=== PATIENT | female | born 1935 | race Caucasian/White ===

== ENCOUNTER 2018-07-04 11:00 | Emergency (ER) | payer OTHER ==
[~2018-07-04] VITALS: Ht 162.6 cm; Wt 70.4 kg
[2018-07-04 11:12] VITALS: Ht 162.6 cm; Wt 70.4 kg
--- NOTE | 2018-07-04 12:07 | EMERGENCY ROOM VISIT NOTE ---
History First contact with patient: 11:34 Chief Complaint: GI ASSESSMENT Stated Complaint: DISTENDED STOMACH History of Present Illness The patient is a 83 year old female who presents to the Emergency Room brought in by daughter due to concern for decreased appetite recent fatigue and somnolence. Daughter states patient has lived in [place] by herself for many years. They noticed in the last several months the patient was having increased forgetfulness and neighbors called her to also state that she did not seem to be eating normally and they were concerned about weight loss. Daughter states they brought her up to their house this summer in the hopes of trying to encourage her to eat better. States she will sleep up to 15 hours a day, has very little appetite and poor intake. Daughter also states that her abdomen appears much more distended than is usual for her. Does not know of any history of GI problems. Is unaware if she is ever had a screening colonoscopy. States patient currently does not take any medications. Patient at bedside has no complaints. Denies any pain, states her appetite is typically well except for the last 3 days. Does admit to increased abdominal distention and bloating. States her bowel movements have been normal, denies black or bloody stools. States has not noticed any change in her urine including a change in odor. Denies fevers or chills. Denies chest pain or trouble breathing. States she gets mildly dizzy when she when she first stands up and feels slightly off balance, however if she stands still for a minute this seems to improve. Denies any weakness or pain with ambulation, although does admit she is easily winded with ambulation. Daughter also notes she had recently had a urinary tract infection which was treated with a week of antibiotics. Review of Systems See HPI for pertinent positives & negatives. A total of 10 systems reviewed and were otherwise negative. Social History Smoking Status: Former Smoker Alcohol Use: none Drug Use: none Marital Status: single Housing Status: lives with family Occupation Status: retired Current/Historical Medications No Active Prescriptions or Reported Meds Physical Exam Vital Signs Date Time Temp Pulse Resp B/P (MAP) Pulse Ox O2 Delivery O2 Flow Rate FiO2 07/04/18 15:15 36.7 72 16 131/78 98 07/04/18 13:16 73 18 126/73 97 Room Air 07/04/18 11:12 36.6 89 20 114/68 92 Room Air Physical Exam GENERAL: alert, well appearing, well nourished, no distress, non-toxic EYE EXAM: normal conjunctiva, PERRL and EOM's grossly intact OROPHARYNX: no exudate, no erythema, lips, buccal mucosa, and tongue normal and mucous membranes are moist NECK: supple, no nuchal rigidity, no adenopathy, non-tender LUNGS: Clear to auscultation. Normal chest wall mechanics, no w/r/r HEART: no murmurs, S1 normal and S2 normal ABDOMEN: abdomen soft, non-tender, normo-active bowel sounds, no masses, no rebound or guarding. Distention noted, no diffuse tympany to percussion, no pulsatile mass. BACK: Back is symmetrical on inspection and there is no deformity, no midline tenderness, no CVA tenderness. SKIN: no rashes and no bruising UPPER EXTREMITIES: upper extremities are grossly normal. Full range of motion, normal pulses. LOWER EXTREMITIES: No pitting edema. Full range of motion, normal pulses. NEURO EXAM: Normal sensorium, cranial nerves II-XII [grossly] intact, normal speech, no [gross] weakness of arms, no [gross] weakness of legs. Gross sensation intact. Medical Decision & Procedures ER Provider Diagnostic Interpretation: CHEST ONE VIEW PORTABLE CLINICAL HISTORY: Weight loss. COMPARISON STUDY: No previous studies for comparison. FINDINGS: Marked elevation of the right hemidiaphragm is noted. There is no evidence for pulmonary edema or pneumonia. Right lower lung opacity favors atelectasis. Mild to moderate cardiomegaly is noted. 2.5 cm right upper quadrant calcific density favors a gallstone. IMPRESSION: 1. No acute cardiopulmonary findings. 2. Marked elevation of the right hemidiaphragm. 3. Mild to moderate cardiomegaly. 4. Cholelithiasis. Electronically signed by: Feng Tucker M.D. 07/04/2018 12:[address] SCAN OF THE ABDOMEN AND PELVIS WITH IV CONTRAST CLINICAL HISTORY: Abdominal distention. Weight loss. Diminished appetite. COMPARISON STUDY: No priors. TECHNIQUE: Following the IV administration of 90 cc of Optiray 320, CT scan of the abdomen and pelvis is performed from the lung bases to the proximal femora. Images are reviewed in the axial, sagittal, and coronal planes. IV contrast was administered without complication. A dose lowering technique was utilized adhering to the principles of ALARA. CT DOSE: 862.70 mGycm FINDINGS: Lung bases: The heart is normal in size and without pericardial effusion. There is a trace right pleural effusion, with elevation of the right hemidiaphragm and right basilar atelectasis. Linear atelectasis is seen at the left lung base. There is no airspace consolidation seen typical for pneumonia. There is a tiny hiatal hernia. Liver: The contrast-enhanced liver is normal in size, contour, and attenuation. There is no intrahepatic biliary ductal dilatation. The hepatic veins and portal veins are patent. Scattered 2 to 3 mm hepatic hypodensities likely represent tiny cysts but are too small for definitive characterization. Gallbladder: There are large calcified gallstones. Spleen: Normal in size and attenuation. Pancreas: Mildly atrophic and grossly unremarkable. Adrenal glands: Unremarkable. Kidneys: The contrast enhanced kidneys are atrophic and without hydronephrosis. Cortical scarring is noted on the left. The kidneys enhance symmetrically. Abdominal vasculature: The abdominal aorta is normal in course and caliber noting moderate atherosclerotic calcification. Bowel: There is an approximately 6 x 12 x 6.5 cm heterogeneously enhancing mass lesion identified in the pelvis centered around the sigmoid colon on image #379. There is no upstream colonic obstruction. This mass lesion closely approximates the dome of the bladder which appears mildly thickened. Bladder invasion is not excluded. There is advanced colonic diverticulosis without CT evidence of acute diverticulitis. The appendix is not clearly visualized. Peritoneum: There is a moderate volume of abdominopelvic ascites. No intraperitoneal free air is seen. There is extensive omental KK identified, greatest anteriorly abdomen the ventral pelvis. The appearance is consistent with carcinomatosis. Mild peritoneal thickening and nodularity is noted. Lymphadenopathy: There are prominent subcentimeter mesenteric lymph nodes. There is no upper abdominal, retroperitoneal, pelvic sidewall, or inguinal lymphadenopathy. Pelvic viscera: The bladder is decompressed. The uterus is surgically absent. Skeletal structures: The skeletal structures are osteopenic. There is a mild superior endplate compression deformity of L1, and a mild to moderate compression deformities noted in L2. Moderate lumbosacral spondylosis is observed. No lytic or blastic lesions are seen. IMPRESSION: 1. There is an approximately 6 x 12 x 6.5 cm heterogeneous mass lesion in the pelvis centered around the sigmoid colon. This should be considered colon cancer until proven otherwise. 2. There is no evidence of colonic obstruction. The upstream colon and small bowel loops are normal in caliber. 3. There is evidence of extensive peritoneal carcinomatosis with a moderate volume of abdominopelvic ascites and omental taking. 4. The mass lesion closely approximates the dome of the bladder which appears mildly thickened. Bladder invasion is not excluded. 5. Advanced colonic diverticulosis without CT evidence of acute diverticulitis. 6. Cholelithiasis. 7. Trace right pleural effusion. 8. Additional findings as above. Electronically signed by: Wild Madrid M.D. 07/04/2018 1:15 PM Dictated Date/Time: 07/04/2018 1:02 PM Laboratory Results 07/04/18 11:50 Red Blood Count 3.74, Mean Corpuscular Volume 91.7, Mean Corpuscular Hemoglobin 28.9, Mean Corpuscular Hemoglobin Concent 31.5, Mean Platelet Volume 9.3, Neutrophils (%) (Auto) 71.5, Lymphocytes (%) (Auto) 13.4, Monocytes (%) (Auto) 12.8, Eosinophils (%) (Auto) 1.6, Basophils (%) (Auto) 0.3, Neutrophils # (Auto ) 4.79, Lymphocytes # (Auto) 0.90, Monocytes # (Auto) 0.86, Eosinophils # (Auto ) 0.11, Basophils # (Auto) 0.02 07/04/18 11:50 Test 07/04/18 11:50 07/04/18 12:07 07/04/18 14:00 White Blood Count 6.71 K/uL (4.8-10.8) Red Blood Count 3.74 M/uL (4.2-5.4) Hemoglobin 10.8 g/dL (12.0-16.0) Hematocrit 34.3 % (37-47) Mean Corpuscular Volume 91.7 fL (80-100) Mean Corpuscular Hemoglobin 28.9 pg (25-34) Mean Corpuscular Hemoglobin Concent 31.5 g/dl (32-36) Platelet Count 403 K/uL (130-400) Mean Platelet Volume 9.3 fL (7.4-10.4) Neutrophils (%) (Auto) 71.5 % Lymphocytes (%) (Auto) 13.4 % Monocytes (%) (Auto) 12.8 % Eosinophils (%) (Auto) 1.6 % Basophils (%) (Auto) 0.3 % Neutrophils # (Auto) 4.79 K/uL (1.4-6.5) Lymphocytes # (Auto) 0.90 K/uL (1.2-3.4) Monocytes # (Auto) 0.86 K/uL (0.11-0.59) Eosinophils # (Auto) 0.11 K/uL (0-0.5) Basophils # (Auto) 0.02 K/uL (0-0.2) RDW Standard Deviation 51.7 fL (36.4-46.3) RDW Coefficient of Variation 15.5 % (11.5-14.5) Immature Granulocyte % (Auto) 0.4 % Immature Granulocyte # (Auto) 0.03 K/uL (0.00-0.02) Prothrombin Time 10.8 SECONDS (9.0-12.0) Prothromb Time International Ratio 1.0 (0.9-1.1) Anion Gap 8.0 mmol/L (3-11) Est Creatinine Clear Calc Drug Dose 37.7 ml/min Estimated GFR () 56.1 Estimated GFR (Non- 48.4 BUN/Creatinine Ratio 20.1 (10-20) Calcium Level 9.0 mg/dl (8.5-10.1) Magnesium Level 1.8 mg/dl (1.8-2.4) Total Bilirubin 0.5 mg/dl (0.2-1) Aspartate Amino Transf (AST/SGOT) 11 U/L (15-37) Alanine Aminotransferase (ALT/SGPT) 9 U/L (12-78) Alkaline Phosphatase 40 U/L (45-117) Troponin I < 0.015 ng/ml (0-0.045) Pro-B-Type Natriuretic Peptide 1416 pg/ml (0-1800) Total Protein 7.1 gm/dl (6.4-8.2) Albumin 2.5 gm/dl (3.4-5.0) Globulin 4.6 gm/dl (2.5-4.0) Albumin/Globulin Ratio 0.5 (0.9-2) Lipase 82 U/L (73-393) Thyroid Stimulating Hormone (TSH) 2.010 uIu/ml (0.300-4.500) Bedside Lactic Acid Venous 1.24 mmol/L (0.90-1.70) Urine Color YELLOW Urine Appearance CLEAR (CLEAR) Urine pH 6.5 (4.5-7.5) Urine Specific [place] > 1.045 (1.000-1.030) Urine Protein NEG (NEG) Urine Glucose (UA) NEG (NEG) Urine Ketones NEG (NEG) Urine Occult Blood NEG (NEG) Urine Nitrite NEG (NEG) Urine Bilirubin NEG (NEG) Urine Urobilinogen NEG (NEG) Urine Leukocyte Esterase TRACE (NEG) Urine WBC (Auto) 1-5 /hpf (0-5) Urine RBC (Auto) 0-4 /hpf (0-4) Urine Hyaline Casts (Auto) 1-5 /lpf (0-5) Urine Epithelial Cells (Auto) >30 /lpf (0-5) Urine Bacteria (Auto) NEG (NEG) Urine Renal Epithelial Cells /lpf (0-5) Medications Administered Medications (Trade) Dose Ordered Sig/Marycarmen Route Start Time Stop Time Status Last Admin Dose Admin Sodium Chloride 500 ml @ 999 mls/hr Q31M STAT IV 07/04/18 13:35 07/04/18 14:05 DC 07/04/18 13:35 999 MLS/HR ECG Per My Interpretation Indication: abdominal pain Rate (beats per minute): 76 Rhythm: normal sinus Findings: no acute ischemic change Comparison ECG Date: Left axis, normal intervals ED Course 1342: Patient and family informed of all results. Concern for insurance this [place]. Will discuss with case management. 1447: Additional bedside discussion with the daughter after she has made multiple calls to insurance in case management has spoken with them also. Daughter would prefer to take her mother and go back down to [place] where all of her usual doctors are. I do not think this is unreasonable at this time. This is likely been an evolving issue over many months if not longer. Discussed with her symptoms to watch and return to the ER for immediately. We will make copies of patient's results to send with as a precaution. Medical Decision Prior records/ancillary studies reviewed and summarized above. Nursing notes reviewed. Additional history obtained from daughter. Differential diagnosis: Etiologies such as metabolic, infection, hypo/hyperglycemia, electrolyte abnormalities, cardiac sources, intracerebral event, toxicologic, neurologic, as well as others were entertained. Here despite complaints. Patient's labs reassuring. Imaging with likely cause of patient's slowly worsening condition of the last several months in the form of malignancy. Patient and daughter made aware of all results at bedside. Discussed with them admission, and they were initially concerned about insurance as patient lives in [place] and all of her doctors down there. After much discussion with their insurance company, case management involvement and information, daughter would like to be discharged and take the patient back down to [place] to her regular doctors to have evaluation and additional workup performed there. Given the likely chronicity of this condition, I felt this was reasonable. Discussed with her this is likely evolving over significant period of time and given the fact that the patient had refused to have colonoscopies, it was unknown until she became more symptomatic. I do not suspect acute infectious etiology. Patient does have a gallstone although no other signs or symptoms of acute cholecystitis or choledocholithiasis. Patient here to tolerate sips of p.o., was ambulatory with a steady gait. Patient and family were given copies of all results here to take with them to [place]. They plan on returning to [place] within the next 36 hours. Discussed with them symptoms to watch and return for a go to the closest emergency room for, he verbalized understanding. I do not suspect bacteremia/sepsis, no evidence of acute vascular or pathology. No other evidence of acute cardiac etiology. Medication Reconcilliation Current Medication List: was personally reviewed by me Blood Pressure Screening Patient's blood pressure: Normal blood pressure Impression Primary Impression: Anemia Additional Impressions: Weight loss Poor appetite Fatigue Departure Information Dispostion Home / Self-Care Condition GOOD Prescriptions No Active Prescriptions or Reported Meds Patient Instructions My [facility] Additional Instructions Please call follow-up with your family doctor when you return home. Please take with the labs and imaging in case the faxed report does not arrive. Please continue to encourage her to eat and drink regularly. If she develops any worsening symptoms or you have other new concerns, please return to the nearest emergency room. Please monitor for any bloody bowel movements, abdominal pain, vomiting, fevers, dizziness, or passing out, as these would be more acutely concerning also. Problem Qualifiers Primary Impression: Anemia Anemia type: unspecified type Qualified Codes: D64.9 - Anemia, unspecified Additional Impressions: Fatigue Fatigue type: unspecified Qualified Codes: R53.83 - Other fatigue
[2018-07-04 12:13] LABS: BASO % 0.3 %; BASO ABS # 0.02 K/uL (0-0.2); EOS % 1.6 %; EOS ABS # 0.11 K/uL (0-0.5); HEMATOCRIT 34.3 % (37-47); HEMOGLOBIN 10.8 g/dL (12.0-16.0); IG# 0.03 K/uL (0.00-0.02); LYMPH % 13.4 %; MEAN CELL VOLUME 91.7 fL (80-100); MEAN CORPUSCULAR HEMOGLOBIN 28.9 pg (25-34); MEAN CORPUSCULAR HGB CONC 31.5 g/dl (32-36); MEAN PLATELET VOLUME 9.3 fL (7.4-10.4); MONO % 12.8 %; MONO ABS # 0.86 K/uL (0.11-0.59); NEUT % 71.5 %; NEUT ABS # 4.79 K/uL (1.4-6.5); PLATELET COUNT 403 K/uL (130-400); RED CELL DISTRIBUTION WIDTH CV 15.5 % (11.5-14.5); RED CELL DISTRIBUTION WIDTH SD 51.7 fL (36.4-46.3); WHITE BLOOD COUNT 6.71 K/uL (4.8-10.8)
[2018-07-04] MEDS ORDERED: OPTIRAY 320 IV PRN (12:15)
--- NOTE | 2018-07-04 12:31 | DIAGNOSTIC IMAGING REPORT ---
CHEST ONE VIEW PORTABLE CLINICAL HISTORY: Weight loss. COMPARISON STUDY: No previous studies for comparison. FINDINGS: Marked elevation of the right hemidiaphragm is noted. There is no evidence for pulmonary edema or pneumonia. Right lower lung opacity favors atelectasis. Mild to moderate cardiomegaly is noted. 2.5 cm right upper quadrant calcific density favors a gallstone. IMPRESSION: 1. No acute cardiopulmonary findings. 2. Marked elevation of the right hemidiaphragm. 3. Mild to moderate cardiomegaly. 4. Cholelithiasis. Electronically signed by: Feng Tucker M.D. 07/04/2018 12:30 PM Dictated Date/Time: 07/04/2018 12:29 PM
[2018-07-04 12:43] LABS: ALBUMIN 2.5 gm/dl (3.4-5.0); ALKALINE PHOSPHATASE 40 U/L (45-117); ALT/SGPT 9 U/L (12-78); AST/SGOT 11 U/L (15-37); BLOOD UREA NITROGEN 21 mg/dl (7-18); CARBON DIOXIDE 27 mmol/L (21-32); CREATININE 1.05 mg/dl (0.60-1.20); GLUCOSE 92 mg/dl (70-99); LIPASE 82 U/L (73-393); POTASSIUM 3.6 mmol/L (3.5-5.1); SODIUM 138 mmol/L (136-145); TOTAL PROTEIN 7.1 gm/dl (6.4-8.2)
--- NOTE | 2018-07-04 13:16 | DIAGNOSTIC IMAGING REPORT ---
CT SCAN OF THE ABDOMEN AND PELVIS WITH IV CONTRAST CLINICAL HISTORY: Abdominal distention. Weight loss. Diminished appetite. COMPARISON STUDY: No priors. TECHNIQUE: Following the IV administration of 90 cc of Optiray 320, CT scan of the abdomen and pelvis is performed from the lung bases to the proximal femora. Images are reviewed in the axial, sagittal, and coronal planes. IV contrast was administered without complication. A dose lowering technique was utilized adhering to the principles of ALARA. CT DOSE: 862.70 mGycm FINDINGS: Lung bases: The heart is normal in size and without pericardial effusion. There is a trace right pleural effusion, with elevation of the right hemidiaphragm and right basilar atelectasis. Linear atelectasis is seen at the left lung base. There is no airspace consolidation seen typical for pneumonia. There is a tiny hiatal hernia. Liver: The contrast-enhanced liver is normal in size, contour, and attenuation. There is no intrahepatic biliary ductal dilatation. The hepatic veins and portal veins are patent. Scattered 2 to 3 mm hepatic hypodensities likely represent tiny cysts but are too small for definitive characterization. Gallbladder: There are large calcified gallstones. Spleen: Normal in size and attenuation. Pancreas: Mildly atrophic and grossly unremarkable. Adrenal glands: Unremarkable. Kidneys: The contrast enhanced kidneys are atrophic and without hydronephrosis. Cortical scarring is noted on the left. The kidneys enhance symmetrically. Abdominal vasculature: The abdominal aorta is normal in course and caliber noting moderate atherosclerotic calcification. Bowel: There is an approximately 6 x 12 x 6.5 cm heterogeneously enhancing mass lesion identified in the pelvis centered around the sigmoid colon on image #379. There is no upstream colonic obstruction. This mass lesion closely approximates the dome of the bladder which appears mildly thickened. Bladder invasion is not excluded. There is advanced colonic diverticulosis without CT evidence of acute diverticulitis. The appendix is not clearly visualized. Peritoneum: There is a moderate volume of abdominopelvic ascites. No intraperitoneal free air is seen. There is extensive omental KK identified, greatest anteriorly abdomen the ventral pelvis. The appearance is consistent with carcinomatosis. Mild peritoneal thickening and nodularity is noted. Lymphadenopathy: There are prominent subcentimeter mesenteric lymph nodes. There is no upper abdominal, retroperitoneal, pelvic sidewall, or inguinal lymphadenopathy. Pelvic viscera: The bladder is decompressed. The uterus is surgically absent. Skeletal structures: The skeletal structures are osteopenic. There is a mild superior endplate compression deformity of L1, and a mild to moderate compression deformities noted in L2. Moderate lumbosacral spondylosis is observed. No lytic or blastic lesions are seen. IMPRESSION: 1. There is an approximately 6 x 12 x 6.5 cm heterogeneous mass lesion in the pelvis centered around the sigmoid colon. This should be considered colon cancer until proven otherwise. 2. There is no evidence of colonic obstruction. The upstream colon and small bowel loops are normal in caliber. 3. There is evidence of extensive peritoneal carcinomatosis with a moderate volume of abdominopelvic ascites and omental taking. 4. The mass lesion closely approximates the dome of the bladder which appears mildly thickened. Bladder invasion is not excluded. 5. Advanced colonic diverticulosis without CT evidence of acute diverticulitis. 6. Cholelithiasis. 7. Trace right pleural effusion. 8. Additional findings as above. Electronically signed by: Wild Madrid M.D. 07/04/2018 1:15 PM Dictated Date/Time: 07/04/2018 1:02 PM
[2018-07-04] MEDS ORDERED: SODIUM CHLORIDE 0.9% 500ML 500 ML IV STA (13:35)
[2018-07-04 15:15] VITALS: BP 131/78; PULSE 72; TEMP 36.7; O2SAT 98
== END 2018-07-04 15:30 | disposition home or self-care (01) ==
LOC: C.EDB 11:02 → C.EDC 15:30
DX: D64.9 Anemia, unspecified (principal); R63.4 Abnormal weight loss; R63.0 Anorexia; R53.83 Other fatigue; K80.20 Calculus of gallbladder without cholecystitis without obstruction; Z87.891 Personal history of nicotine dependence